=== PATIENT | male | born 1985 | race Caucasian/White ===

== ENCOUNTER 2018-11-24 19:38 | Emergency (ER) | payer SELFPAY ==
[~2018-11-24] VITALS: Ht 160 cm; Wt 47.6 kg
== END 2018-11-24 20:05 | disposition left against medical advice (07) ==
LOC: ER 19:38
DX: R60.0 Localized edema (principal); F10.220 Alcohol dependence with intoxication, uncomplicated; M79.605 Pain in left leg; M79.604 Pain in right leg; Z13.9 Encounter for screening, unspecified